=== PATIENT | female | born 1960 | race Caucasian/White ===

== ENCOUNTER → 2018-09-03 | Outpatient (CLI) | payer MEDICARE, MEDICAID ==
[~2018-09-03] MED LIST: ALBU8.5H8 IH; ALPR2TAB2 PO; ASPI-147 PO; ASPI-611 PO; GEMF600T PO; LITH300T3 PO; LURA120T PO; MECL12.5 PO; PER10325T PO; PRAV20TA4 PO; TEMA30CA5 PO
== END | disposition home or self-care (01) ==
LOC: CARD DIAG 13:50
PROVIDERS: ATTEND Family Medicine
DX: I35.8 Other nonrheumatic aortic valve disorders (principal); R55 Syncope and collapse; F17.200 Nicotine dependence, unspecified, uncomplicated; J45.909 Unspecified asthma, uncomplicated; Z79.82 Long term (current) use of aspirin
CPT/HCPCS: 93306

== ENCOUNTER 2019-05-18 12:52 | Outpatient (CLI) | payer MEDICARE, MEDICAID | END 2019-05-18 23:59 | disposition home or self-care (01) | LOC: VAS 12:52 | PROVIDERS: ATTEND Family Medicine | DX: M79.89 Other specified soft tissue disorders (principal); F17.200 Nicotine dependence, unspecified, uncomplicated | CPT/HCPCS: 93971 ==